=== PATIENT | female | born 1955 | race Caucasian/White ===

== ENCOUNTER 2024-04-07 15:49 | Emergency (ER) | payer OTHER, SELFPAY ==
[2024-04-07 15:53] VITALS: BP 173/79; PULSE 65; RESP 18; TEMP 37.1; O2SAT 100; BMI 22.4
--- NOTE | 2024-04-07 16:00 | DI.RAD.S_ITS ---
PROCEDURE: XR SHOULDER LT MIN 2V INDICATIONS: fall/pain/felt a pop TECHNIQUE: 3 views of the shoulder were acquired. COMPARISON: None. FINDINGS: Bones: Three views show fracture of the neck of the humerus. No dislocation of the humeral head. There is angulation at the fracture site. Soft tissues: No suspicious soft tissue calcifications. IMPRESSION: Left humeral neck fracture. Dictated by: Neftali Ramsay M.D. on 04/07/2024 at 16:17 Approved by: Neftali Ramsay M.D. on 04/07/2024 at 16:18
--- NOTE | 2024-04-07 16:30 | ED_ITS ---
HPI - General Adult General Chief complaint: Extremity Injury, Upper Stated complaint: lt shoulder injury Time Seen by Provider: 04/07/24 16:23 Source: patient Mode of arrival: Ambulatory History of Present Illness HPI narrative: 68-year-old female here for evaluation of the left shoulder injury. Patient states that she was hiking and slipped backwards landing on her left shoulder. She was right-hand dominant. No other injuries from the event. Did not hit her head. No anticoagulation. She has significant discomfort with movement of the left shoulder. Has obvious deformity of the left shoulder. Her left elbow and left wrist unremarkable. No chest pain. Related Data Previous Rx's Medication Instructions Recorded hydrocodone 5 mg-acetaminophen 325 1 tab PO Q4H PRN pain #20 tabs 04/07/24 mg tablet Allergies Allergy/AdvReac Type Severity Reaction Status Date / Time No Known Drug Allergies Allergy Verified 04/07/24 15:53 Review of Systems Constitutional Constitutional: Reports system reviewed and no additional complaints, except as documented Musculoskeletal Musculoskeletal: Reports system reviewed and no additional complaints, except as documented Integumentary/Breasts Skin/Breast: Reports system reviewed and no additional complaints, except as documented Neurologic Neurologic: Reports system reviewed and no additional complaints, except as documented Patient History Social History Smoking Status: Never smoker Smoking Status: Never smoker alcohol intake frequency: holidays/special occasions only Substance Use Type: does not use Exam Initial Vital Signs Initial Vital Signs: Vital Signs Temperature 98.7 F 04/07/24 15:53 Pulse Rate 65 04/07/24 15:53 Respiratory Rate 18 04/07/24 15:53 Blood Pressure 173/79 H 04/07/24 15:53 Pulse Oximetry 100 04/07/24 15:53 Oxygen Delivery Method Room Air 04/07/24 15:53 Cardio Pulses: radial pulses present on the left Back/Spine/Pelvis Cervical Spine: No cervical spinal tenderness Skin Other: Bruising in the anterior portion of the left shoulder. Neuro Sensory Exam: no sensory deficits noted Extrem Other: Left elbow and left wrist unremarkable. Has discomfort palpation of the proximal shoulder on the left. Has some dimpling of the deltoid on the left. Some discomfort of the clavicle. Course Orders Ordered: ED Orders 04/07/24 16:00 XR shoulder LT min 2V Stat 04/07/24 17:44 CT UE LT wo con Stat Discontinued Medications Hydromorphone HCl (Hydromorphone 1 Mg Inj) 1 mg IM NOW ONE Stop: 04/07/24 16:29 Last Admin: 04/07/24 16:38 Dose: 1 mg Documented By: DONNIE Vital Signs Vital signs: Vital Signs - 8 hr 04/07/24 15:53 Temperature 98.7 F Pulse Rate 65 Respiratory Rate 18 Blood Pressure 173/79 H Pulse Oximetry 100 Oxygen Delivery Method Room Air Medical Decision Making Imaging Data CT UE: Radiologist's Impression: PROCEDURE: CT UE LT WO CON INDICATIONS: Prox humerus fracture, CT requested by ortho TECHNIQUE: Noncontrast 0.75 mm thick sections acquired from the acromioclavicular joint to the inferior scapula, with coronal and sagittal reformatting. COMPARISON: None. FINDINGS: Image quality: Excellent. Bones: There is a Neer 2 part fracture of the humeral neck. Fractures foreshortened, and extends to the greater tuberosity. There is adequate articulation between the humeral head and the glenoid. Soft tissues: Lipohemarthrosis. Visualized lungs are normal, without pneumothorax. IMPRESSION: Neer 2 part fracture. Glenohumeral alignment is within normal limits. Extremity x-ray #1: Radiologist's Impression: PROCEDURE: XR SHOULDER LT MIN 2V INDICATIONS: fall/pain/felt a pop TECHNIQUE: 3 views of the shoulder were acquired. COMPARISON: None. FINDINGS: Bones: Three views show fracture of the neck of the humerus. No dislocation of the humeral head. There is angulation at the fracture site. Soft tissues: No suspicious soft tissue calcifications. IMPRESSION: Left humeral neck fracture. [facility] Narrative Medical decision making narrative: She is neurovascularly intact. She does have a proximal humerus fracture noted on the x-ray. Discussed the case with Dr. Trivedi on-call for Orthopedic surgery who recommended CT scan and stated that he would contact her for a follow-up and most likely surgery. He recommended a cuff and collar sling however we did not have this available here in the ER so she was placed in a regular sling. She was given care instructions and return precautions. She was given a copy of her imaging studies [place] CD she was [place] although she will consider following up with Orthopedics here locally. Discharge Plan Departure Patient Disposition: Home Clinical Impression: Fracture of proximal end of left humerus Instructions: DI for Shoulder Fracture Activity Restrictions/Additional Instructions: You are going to require follow-up with orthopedic surgery for the fracture of the left shoulder. You can contact them at the number provided below. Use the pain medication as needed. I also recommend the sling for comfort however you can take it off in order to shower and to change your clothes. Return to the emergency department for new or worsening symptoms. Prescriptions: New hydrocodone-acetaminophen 5-325 mg tablet 1 tab PO Q4H PRN (Reason: pain) Qty: 20 0RF Referrals: Olu Trivedi MD [Physician] - Stand Alone Forms: Patient Portal/API
[2024-04-07] MEDS: HYDROMORPHONE 1 MG INJ IM (16:38)
--- NOTE | 2024-04-07 17:44 | DI.CT.S_ITS ---
PROCEDURE: CT UE LT WO CON INDICATIONS: Prox humerus fracture, CT requested by ortho TECHNIQUE: Noncontrast 0.75 mm thick sections acquired from the acromioclavicular joint to the inferior scapula, with coronal and sagittal reformatting. COMPARISON: None. FINDINGS: Image quality: Excellent. Bones: There is a Neer 2 part fracture of the humeral neck. Fractures foreshortened, and extends to the greater tuberosity. There is adequate articulation between the humeral head and the glenoid. Soft tissues: Lipohemarthrosis. Visualized lungs are normal, without pneumothorax. IMPRESSION: Neer 2 part fracture. Glenohumeral alignment is within normal limits. Dictated by: Jose Raul Workman M.D. on 04/07/2024 at 17:49 Approved by: Jose Raul Workman M.D. on 04/07/2024 at 17:53
[2024-04-07 18:56] VITALS: BP 179/75; PULSE 88; RESP 20; TEMP 36.7; O2SAT 98
== END 2024-04-07 18:58 | disposition home or self-care (01) ==
PROVIDERS: Emergency Provider Emergency Medicine
DX: S42.202A Unspecified fracture of upper end of left humerus, initial encounter for closed fracture (principal); W01.0XXA Fall on same level from slipping, tripping and stumbling without subsequent striking against object, initial encounter
CPT/HCPCS: 73030; 73200; 96372; 99283; 99284; J1170